=== PATIENT | female | born 1995 | race Two or more races ===

== ENCOUNTER → 2021-11-24 | Outpatient (CLI) | payer OTHER ==
[2021-11-24 18:09] LABS: BASO % 0.2 % (0.0-1.0); EOS % 0.5 % (0.0-3.0); HEMATOCRIT 39.3 % (36.0-47.0); HEMOGLOBIN 13.2 g/dl (12.0-15.5); LYMPH # 1.4 10^3/uL (1.5-5.0); LYMPH % 16.4 % (24.0-44.0); MEAN CORPUSCULAR HEMOGLOBIN 29.5 pg (27.0-33.0); MEAN CORPUSCULAR HGB CONC 33.6 g/dl (32.0-36.5); MEAN CORPUSCULAR VOLUME 87.7 fl (80.0-96.0); MONO # 0.4 10^3/uL (0.0-0.8); MONO % 4.1 % (2.0-8.0); NEUTROPHILS # 6.7 10^3/uL (1.5-8.5); NEUTROPHILS % 78.5 % (36.0-66.0); PLATELET COUNT, AUTOMATED 233 10^3/uL (150-450); RED BLOOD COUNT 4.48 10^6/uL (4.00-5.40); WHITE BLOOD COUNT 8.6 10^3/uL (4.0-10.0)
[2021-11-24 20:13] LABS: HEPATITIS C VIRUS ABY INDEX < 0.0 INDEX (<0.8); HIV 1&2 SCREEN CENTAUR NEGATIVE (NEGATIVE)
[2021-11-24 20:38] LABS: GC DNA AMPLIFICATION NEGATIVE (NEGATIVE)
== END ==
LOC: M PLALAB 15:43
PROVIDERS: ATTEND Specialist
DX: Z34.81 Encounter for supervision of other normal pregnancy, first trimester (principal)

== ENCOUNTER → 2021-12-10 | Outpatient (CLI) | payer OTHER | LOC: M PLALAB 14:49 | PROVIDERS: ATTEND Specialist | DX: Z34.82 Encounter for supervision of other normal pregnancy, second trimester (principal); Z3A.00 Weeks of gestation of pregnancy not specified ==

== ENCOUNTER → 2022-03-26 | Outpatient (CLI) | payer OTHER ==
[2022-03-26 16:47] LABS: HEMATOCRIT 39.8 % (36.0-47.0); HEMOGLOBIN 13.3 g/dl (12.0-15.5); MEAN CORPUSCULAR HEMOGLOBIN 30.3 pg (27.0-33.0); MEAN CORPUSCULAR HGB CONC 33.4 g/dl (32.0-36.5); MEAN CORPUSCULAR VOLUME 90.7 fl (80.0-96.0); PLATELET COUNT, AUTOMATED 256 10^3/uL (150-450); RED BLOOD COUNT 4.39 10^6/uL (4.00-5.40); WHITE BLOOD COUNT 10.9 10^3/uL (4.0-10.0)
[2022-03-26 17:20] LABS: GC DNA AMPLIFICATION NEGATIVE (NEGATIVE)
== END ==
LOC: M PLALAB 11:07
PROVIDERS: ATTEND Specialist
DX: Z34.82 Encounter for supervision of other normal pregnancy, second trimester (principal)

== ENCOUNTER → 2022-03-30 | Outpatient (CLI) | payer OTHER | LOC: M RAD 10:00 | PROVIDERS: ATTEND Specialist | DX: Z34.82 Encounter for supervision of other normal pregnancy, second trimester (principal); Z3A.29 29 weeks gestation of pregnancy ==

== ENCOUNTER → 2022-05-08 | Outpatient (CLI) | payer OTHER ==
[2022-05-08 14:25] LABS: HEMATOCRIT 42.2 % (36.0-47.0); HEMOGLOBIN 13.9 g/dl (12.0-15.5); MEAN CORPUSCULAR HEMOGLOBIN 29.4 pg (27.0-33.0); MEAN CORPUSCULAR HGB CONC 32.9 g/dl (32.0-36.5); MEAN CORPUSCULAR VOLUME 89.2 fl (80.0-96.0); PLATELET COUNT, AUTOMATED 236 10^3/uL (150-450); RED BLOOD COUNT 4.73 10^6/uL (4.00-5.40); WHITE BLOOD COUNT 10.6 10^3/uL (4.0-10.0)
[2022-05-08 14:43] LABS: TOTAL PROTEIN,RANDOM URINE 14.5 MG/DL (0.0-14.0)
[2022-05-08 14:46] LABS: URIC ACID 4.7 MG/DL (3.1-7.8)
[2022-05-08 14:48] LABS: CREATININE,RANDOM URINE 81.9 MG/DL; LDH LACTATE DEHYDROGENASE 191 U/L (120-246)
[2022-05-08 14:49] LABS: ALT/SGPT 28 U/L (7.0-40); AST/SGOT 22 U/L (<34); BILIRUBIN,TOTAL 0.5 MG/DL (0.3-1.2); CREATININE FOR GFR 0.61 MG/DL (0.55-1.30); GLOMERULAR FILTRATION RATE > 60.0 (>60)
[2022-05-08 16:11] LABS: GC DNA AMPLIFICATION NEGATIVE (NEGATIVE)
== END ==
LOC: M PLALAB 11:15
PROVIDERS: ATTEND Advanced Practice Midwife
DX: Z34.93 Encounter for supervision of normal pregnancy, unspecified, third trimester (principal); A74.9 Chlamydial infection, unspecified

== ENCOUNTER 2022-05-23 18:05 | Inpatient (IN) | payer OTHER ==
[2022-05-23] VITALS (8 sets, daily range): BP systolic 113–178; BP diastolic 59–117
[~2022-05-23] VITALS: Ht 157.5 cm; Wt 95.9 kg
[2022-05-23] MEDS ORDERED: buspar PO (18:24)
[2022-05-23] MEDS ORDERED: PRENTAB9 PO (18:24)
[2022-05-23] MEDS ORDERED: HOME MED LIST COMPLETE! XX SCH (18:25)
[2022-05-23] MEDS ORDERED: OXYTOCIN DRIP 30 UNITS in IV 1 EA IV PRN (18:35)
[2022-05-23] MEDS ORDERED: LIDOCAINE 1% MDV 20ML VIAL INFIL PRN (18:35)
[2022-05-23] MEDS ORDERED: ADDE30CA3 PO (18:49)
[2022-05-23] MEDS ORDERED: ASPI81CH33 PO (18:50)
[2022-05-23 19:28] LABS: HEMATOCRIT 37.8 % (36.0-47.0); HEMOGLOBIN 12.5 g/dl (12.0-15.5); MEAN CORPUSCULAR HEMOGLOBIN 28.9 pg (27.0-33.0); MEAN CORPUSCULAR HGB CONC 33.1 g/dl (32.0-36.5); MEAN CORPUSCULAR VOLUME 87.5 fl (80.0-96.0); PLATELET COUNT, AUTOMATED 223 10^3/uL (150-450); RED BLOOD COUNT 4.32 10^6/uL (4.00-5.40); WHITE BLOOD COUNT 10.2 10^3/uL (4.0-10.0)
[2022-05-23 19:51] LABS: URIC ACID 3.7 MG/DL (3.1-7.8)
[2022-05-23 19:53] LABS: LDH LACTATE DEHYDROGENASE 198 U/L (120-246)
[2022-05-23 19:54] LABS: ALT/SGPT 64 U/L (7.0-40); AST/SGOT 32 U/L (<34); BILIRUBIN,TOTAL 0.5 MG/DL (0.3-1.2); CREATININE FOR GFR 0.51 MG/DL (0.55-1.30); GLOMERULAR FILTRATION RATE > 60.0 (>60)
[2022-05-23] MEDS: miSOPROStol 50MCG 1/2 TABLET SL SCH ×2 (19:57→23:53)
[2022-05-23 20:52] LABS: TOTAL PROTEIN,RANDOM URINE 6.8 MG/DL (0.0-14.0)
[2022-05-23 20:58] LABS: CREATININE,RANDOM URINE 21.1 MG/DL
[2022-05-24] VITALS (8 sets, daily range): BP systolic 125–148; BP diastolic 66–85
[2022-05-24] MEDS: miSOPROStol 50MCG 1/2 TABLET SL SCH (03:59)
[2022-05-24] MEDS ORDERED: PENICILLIN G POTASSIUM 5 MU IV 5 MU in D5W MINI-BAG PLUS 100 ML IV STA (04:38)
[2022-05-24] MEDS ORDERED: NALOXONE INJ 0.4MG/1ML VIAL IV PRN (05:00)
[2022-05-24] MEDS ORDERED: ePHEDrine SULFATE 25 MG/5 ML(5MG/ML) SYRINGE IVP PRN (05:00)
[2022-05-24] MEDS ORDERED: ONDANSETRON 4MG 2ML VIAL IV PRN (05:00)
[2022-05-24] MEDS ORDERED: EPIDURAL/PCA KEYS XX PRN (05:00)
[2022-05-24] MEDS ORDERED: diphenhydrAMINE 50MG/ML VIAL IV PRN (05:00)
[2022-05-24] MEDS ORDERED: LR 500 ML IV PRN (05:00)
[2022-05-24] MEDS ORDERED: FENTANYL/ROPIVACAINE/NACL BAG 100 ML EPIDURAL SCH (05:00)
[2022-05-24] MEDS ORDERED: METHYLERGONOVINE MALEATE 0.2 MG TAB PO PRN (06:05)
[2022-05-24] MEDS ORDERED: RHOGAM 300MCG (1500IU) INJ IM SCH (06:05)
[2022-05-24] MEDS ORDERED: IBUPROFEN 600MG TAB PO PRN (06:05)
[2022-05-24] MEDS ORDERED: ACETAMINOPHEN TAB 650MG DOSE (2X325MG) PO PRN (06:05)
[2022-05-24] MEDS: IBUPROFEN 800 MG TAB PO PRN ×2 (06:23→20:13)
[2022-05-24] MEDS ORDERED: PEN G POT 3,000,000 UNIT/50 ML 3,000,000 UNIT in IV 1 EA IV SCH (09:00)
[2022-05-24] MEDS: PRENATAL VITAMINS CHEWABLE TABLET PO SCH (09:33)
[2022-05-24] MEDS: ACETAMINOPHEN 500 MG TAB PO PRN (09:34)
[2022-05-24] MEDS: DIBUCAINE 1% OINTMENT 30GM TOP PRN ×2 (11:05→20:06)
[2022-05-24] MEDS: DOCUSATE SODIUM 100MG CAPSULE PO PRN (20:06)
[2022-05-25 02:02] VITALS: BP 128/80
[2022-05-25] MEDS: ACETAMINOPHEN 500 MG TAB PO PRN (03:39)
[2022-05-25 06:05] VITALS: BP 129/79
[2022-05-25] MEDS: PRENATAL VITAMINS CHEWABLE TABLET PO SCH (07:24)
[2022-05-25] MEDS: DIBUCAINE 1% OINTMENT 30GM TOP PRN (07:51)
[2022-05-25 10:00] VITALS: BP 135/75
[2022-05-25 14:00] VITALS: BP 127/77
[2022-05-25] MEDS: IBUPROFEN 800 MG TAB PO PRN (15:44)
[2022-05-25 18:00] VITALS: BP 137/77
[2022-05-25] MEDS: DOCUSATE SODIUM 100MG CAPSULE PO PRN (20:52)
[2022-05-25 22:00] VITALS: BP 131/78
[2022-05-26 02:00] VITALS: BP 136/88
[2022-05-26] MEDS: DIBUCAINE 1% OINTMENT 30GM TOP PRN (03:16)
[2022-05-26 06:00] VITALS: BP 132/86
[2022-05-26] MEDS: IBUPROFEN 800 MG TAB PO PRN (06:48)
[2022-05-26] MEDS: PRENATAL VITAMINS CHEWABLE TABLET PO SCH (09:00)
[2022-05-26] MEDS ORDERED: MEASLES,MUMPS,RUBELLA VACCINE INJ (MMR-II) SC.IMMUN ONE (09:00)
[2022-05-26 10:00] VITALS: BP 145/85
== END 2022-05-26 13:55 | disposition home or self-care (01) | DRG 560 ==
LOC: M LDI 18:05 → M OBS 05-24 08:11
PROVIDERS: ADMIT Specialist; ATTEND Specialist
PROC: 3E0P7GC Introduction of Other Therapeutic Substance into Female Reproductive, Via Natural or Artificial Opening (ICD-10-PCS; 2022-05-23)
PROC: 10E0XZZ Delivery of Products of Conception, External Approach (ICD-10-PCS; principal; 2022-05-24)
PROC: 0KQM0ZZ Repair Perineum Muscle, Open Approach (ICD-10-PCS; 2022-05-24)
DX: O13.4 Gestational [pregnancy-induced] hypertension without significant proteinuria, complicating childbirth (principal); Z3A.37 37 weeks gestation of pregnancy; Z79.82 Long term (current) use of aspirin; Z79.899 Other long term (current) drug therapy; O99.824 Streptococcus B carrier state complicating childbirth; O69.81X0 Labor and delivery complicated by cord around neck, without compression, not applicable or unspecified; O70.1 Second degree perineal laceration during delivery; Z37.0 Single live birth